=== PATIENT | male | born 1975 | race African-American/Black ===

== ENCOUNTER 2024-01-27 10:31 | Emergency (ER) | payer OTHER, SELFPAY ==
[2024-01-27 10:37] VITALS: BP 162/101
[2024-01-27 11:16] VITALS: BMI 34.9
[2024-01-27] MEDS: NSS 500 IV (11:27)
[2024-01-27] MEDS: OMNIPAQUE 50 ML PO (11:34)
[2024-01-27 11:51] LABS: % Basophils 0.4 % (0-2); % Immature Granulocytes 0.5 % (0-0.5); % Lymphocytes 19.5 % (20.5-51.1); % Monocytes 8.2 % (1.7-9.3); % Neutrophils 70.4 % (42.2-75.2); Absolute Basophils 0.1 10^3/uL (0-0.2); Absolute Eosinophils 0.1 10^3/uL (0-0.7); Absolute Immature Granulocytes 0.1 10^3/uL (0-0.05); Absolute Lymphocytes 2.5 10^3/uL (1.2-3.4); Absolute Monocytes 1.1 10^3/uL (0.1-0.6); Hematocrit 39.2 % (39.0-52.0); Hemoglobin 13.7 g/dL (13.0-18.0); Mean Corp Hgb Conc. 34.9 g/dL (33.0-37.0); Mean Corpuscular Hgb 29.7 pg (27.0-31.0); Mean Corpuscular Volume 84.8 fL (80.0-94.0); Mean Platelet Volume 10.4 fL (7.4-10.4); Nucleated Red Blood Cells % 0 % (-); Platelet Count 223 10^3/uL (130-400); Red Blood Cell Count 4.62 10^6/uL (4.70-6.10); Red Cell Dist. Width 12.9 % (11.5-14.5); White Blood Cell Count 12.8 10^3/uL (4.8-10.8)
--- NOTE | 2024-01-27 11:51 | ED.GENMED ---
History of Present Illness
General
Chief Complaint: Abdominal Pain
Source: patient
Exam Limitations: none
Time Seen by Provider: 01/27/24 11:08
Travel History
Have you had any contact with someone who has COVID-19?: No
Do you have any symptoms of coronavirus? Fever > 100 degrees, chills, cough, shortness of breath, sore throat, loss of taste or smell, muscle aches, or headache?: No
History of Present Illness
History of Present Illness:
48-year-old male complaining of lower abdominal pain progressive over about 36 hours. No fever. Thought he might be constipated. Elevated blood work at urgent care who sent him for further evaluation and possible CAT scan.
Past History
Past History
ED Past Medical History: None
ED Past Surgical History: Orthopedic
Social History
Tobacco: Non-smoker
Review of Systems
Review of Systems
All Other Systems: Not applicable
Constitutional: Denies fever
Respiratory: Reports no symptoms
Cardiac: Reports no symptoms
Phy Exam
Physical Exam
Physical Exam:
GENERAL: Alert and oriented in no apparent distress
EYE: Orbits normal.
NECK: Supple
CARDIAC: Regular rate and rhythm without any obvious murmurs.
LUNGS: Clear breath sounds,normal
ABDOMEN: Soft, mild to moderate left lower quadrant tenderness. No rebound or guarding no mass or hernia
NEUROLOGICAL: Alert and oriented , grossly non-focal
SKIN: Warm and dry, no rash or lesion, no discoloration, skin intact.
MUSCULOSKELETAL: No edema,no deformity.Good color
PSYCH: Normal and appropriate interaction.
Course
Orders/Labs/Results
Orders:
Orders
01/27/24 11:14
CT Abd/pel W Iv And Oral Contr Urgent
Comment:
Reason For Exam: Left lower quadrant pain
IV Insert/Care/Rem.- Treatment PRN
0.9% Sodium Chloride 500 ml [Nss] 500 ml IV BOLUS
Iohexol [Omnipaque] See Protocol PO NOW STA
01/27/24 11:27
Complete Blood Count/With Diff Urgent
Comprehensive Metabolic Panel Urgent
Lipase Urgent
01/27/24 12:44
Urinalysis Reflex To Culture Urgent
Date Specimen was Collected: 01/27/24
Time Specimen was Collected: 12:42
01/27/24 15:30
Ciprofloxacin HCl [Cipro] 500 mg PO NOW STA
MetroNIDAZOLE [Flagyl] 500 mg PO NOW STA
Abnormal Lab Results
01/27/24
11:27
WBC 12.8 H 10^3/uL
(4.8-10.8)
RBC 4.62 L 10^6/uL
(4.70-6.10)
Abs Immat Gran (auto) 0.1 H 10^3/uL
(0-0.05)
Absolute Neuts (auto) 9.0 H 10^3/uL
(1.4-6.5)
Absolute Monos (auto) 1.1 H 10^3/uL
(0.1-0.6)
Lymphocytes % 19.5 L %
(20.5-51.1)
Creatinine 1.6 H mg/dL
(0.7-1.3)
Glucose 117 H mg/dl
(70-99)
01/27/24 11:27
01/27/24 11:27
Vital Signs
Initial and Last Documented VS:
Initial Vital Signs
Temp Pulse Resp BP Pulse Ox
98.3 F 96 18 162/101 98
01/27/24 10:37 01/27/24 10:37 01/27/24 10:37 01/27/24 10:37 01/27/24 10:37
Last Documented Vital Signs
Temp Pulse Resp BP Pulse Ox
98.6 F 78 18 147/91 98
01/27/24 14:40 01/27/24 14:40 01/27/24 14:40 01/27/24 14:40 01/27/24 14:40
MDM/Problems Addressed
Differential Diagnosis Includes:
48-year-old left lower quadrant pain. Diverticulitis versus atypical appendicitis. Doubt kidney issue. Workup in progress
*Radiology
Radiology exam reviewed: radiology read reviewed (Moderate to advanced diverticulitis proximal sigmoid colon. No perforation or abscess no free air)
*Pulse Oximetry
Patient hypoxic: no
*Critical Care Note
Total Time (30-74mins, 75-104mins- exclusive of procedures): Not Applicable
Update Note
Update Note:
Patient is clinically stable and nontoxic. Given the CT findings and leukocytosis I did recommend he stay in the hospital for IV antibiotics until this turns the corner. He is fully aware that this be more likely to resolve the issue in a timely
fashion. He is also aware of the risk of perforation. He is elected for outpatient management despite this. I also offered to give the first dose IV but he states he needs to get home to his kids. Will start oral antibiotics and close follow-up
with recommendation to return with any progression of symptoms
Of note patient will avoid nonsteroidals stay hydrated follow-up closely and also recommended follow-up colonoscopy when symptoms all resolved
ED Attending Note
-
Portions of this chart may have been created with voice recognition software.� Occasional wrong word or��sound alike� substitutions may have occurred due to the inherent limitations of voice recognition software.
Discharge Plan
Departure
Patient Disposition: Home (Routine Discharge)
Date of Disposition: 01/27/24
Time of Disposition: 15:31
Patient with high blood pressure during this ER visit?: Yes
Discharge Problem:
Acute sigmoid diverticulitis, Mild renal insufficiency
Instructions: Diverticulitis (DC), BLOOD PRESSURE
Prescriptions:
New
ciprofloxacin HCl 500 mg tablet
500 mg PO BID Qty: 20 0RF
metronidazole 500 mg tablet
500 mg PO TID Qty: 30 0RF
Referrals:
PRIVATE,PHYSICIAN [Family Provider] -
Activity Restrictions/Additional Instructions:
Follow-up in the next 2 to 3 days with your primary physician
If you change your mind about admission or if symptoms progress at all please return immediately to the hospital
Interventions
Interventions:
*Risk Screen - Suicide Last Done: 01/27/24 11:17
*General Assessment Last Done: 01/27/24 10:37
*Neglect/Abuse Screening Last Done: 01/27/24 11:17
ED- Fall Risk Assessment Last Done: 01/27/24 12:15
*ED COVID-19 Vaccine History Last Done: 01/27/24 10:37
*Nursing Disposition Last Done: 01/27/24 15:44
RS-Ljhyjt-Lnccefditx Assessment Last Done: 01/27/24 11:17
Discharge Date and Time
Discharge Date/Time: 01/27/24 15:45
[2024-01-27 12:06] LABS: ALT (SGPT) 23 U/L (0-50); AST (SGOT) 30 U/L (17-59); Albumin 3.8 g/dl (3.5-5.0); Alkaline Phosphatase 73 U/L (38-126); Blood Urea Nitrogen 15 mg/dl (9-20); Calcium 8.6 mg/dl (8.4-10.2); Carbon Dioxide 27 mmol/L (22-30); Chloride 105 mmol/L (98-107); Estimated Creatinine Clearance 72 ml/min; Glucose 117 mg/dl (70-99); Lipase 58 U/L (23-300); Potassium 3.9 mmol/L (3.5-5.1); Sodium 135 mmol/L (135-145); Total Bilirubin 0.5 mg/dl (0.2-1.3); Total Protein 6.7 g/dl (6.3-8.2); eGFR 52.49
[2024-01-27 12:30] VITALS: BP 156/95
[2024-01-27 12:59] LABS: Urine Albumin Negative (Neg - Trace); Urine Bilirubin Negative (Negative); Urine Character Clear (Clear); Urine Color Yellow; Urine Glucose Negative (Negative); Urine Ketone Negative (Negative); Urine Leukocyte Negative (Negative); Urine Nitrite Negative (Negative); Urine Occult Blood Negative (Negative); Urine Specific Gravity 1.015 (<1.030); Urine Urobilinogen Negative (Neg - 1+)
[2024-01-27 14:40] VITALS: BP 147/91
[2024-01-27] MEDS: FLAGYL 500 MG PO (15:39)
[2024-01-27] MEDS: CIPRO 500 MG PO (15:39)
== END 2024-01-27 15:45 | disposition home or self-care (01) ==
LOC: EMR 10:31
PROVIDERS: EMERGENCY PHYSICIAN Emergency Medicine
DX: K57.32 Diverticulitis of large intestine without perforation or abscess without bleeding (principal); N28.9 Disorder of kidney and ureter, unspecified; R03.0 Elevated blood-pressure reading, without diagnosis of hypertension
CPT/HCPCS: 99284; 96360; 96361; 74177; 80053; 81003; 83690; 85025; Q9967